=== PATIENT | male | born 1945 | race Caucasian/White ===

== ENCOUNTER 2018-03-11 03:08 | Inpatient (IN) | payer MEDICARE, OTHER ==
[~2018-03-11] VITALS: Ht 177.8 cm; Wt 98.4 kg
[~2018-03-11 03:08] MED LIST: ALLOPURINOL 10100 M1 PO; ASPIR 8181 MG PO; ASPIRIN EC81 M1 PO; CARDIZEM CD120 MG PO; CLARITIN-D 121 EACH PO; CLOPIDOGREL75 MG PO; CO Q-1010 MG PO; COUMADIN 5 MG TA5 M1 PO; DHEA25 MG PO; HYDROCODON-ACE1 EAC7 PO; HYDROCODON-ACE1 EAC8 PO; LISINOPRIL20 MG PO; LISINOPRIL5 MG PO; MUPIROCIN22 GM TP; OXYCODONE HCL5 M1 PO
[2018-03-11 03:16] VITALS: BP 162/100
[2018-03-11] MEDS ORDERED: COZAAR100 MG PO (03:18)
[2018-03-11 03:38] LABS: ABSOLUTE BASOPHILS 0.1 thou/uL (0.0-0.2); ABSOLUTE EOSINOPHILS 0.2 thou/uL (0.0-0.7); ABSOLUTE LYMPHOCYTES 1.3 thou/uL (0.8-5.3); ABSOLUTE MONOCYTES 1.1 thou/uL (0.0-1.2); ABSOLUTE NEUTROPHILS 10.1 thou/uL (1.6-8.1); BASOPHILS 0.8 %; EOSINOPHILS 1.5 %; HEMATOCRIT 49.1 % (42.0-52.0); HEMOGLOBIN 16.9 gm/dL (14.0-18.0); MCH 31.5 pg (26.0-34.0); MCHC 34.4 g/dL (28.0-37.0); MCV 91.7 fL (80.0-100.0); MONOCYTES 8.4 %; NUCLEATED RBCS 0 /100WBC; PLATELET COUNT* 247 thou/uL (150-400); POLYS 79.3 %; RBC 5.36 mil/uL (4.50-6.00); RDW-CV 13.2 % (10.5-14.5); WBC 12.7 thou/uL (4.0-11.0)
[2018-03-11 03:40] LABS: URINE CLARITY TURBID; URINE COLOR RED
[2018-03-11 03:48] LABS: CALCIUM 9.4 mg/dL (8.5-10.1); CREATININE 1.2 mg/dL (0.6-1.3); POTASSIUM 4.1 mmol/L (3.5-5.1)
[2018-03-11 03:50] LABS: INR 2.1; PROTIME 21.3 Seconds (9.20-11.50)
[2018-03-11 03:50] LABS: URINE PROTEIN ND (Negative); URINE SPECIFIC GRAVITY ND (1.005-1.030)
[2018-03-11 03:51] LABS: ACETEST (KETONE CONFIRMATORY) Negative (Negative); ICTOTEST (BILI CONFIRMATORY) Negative (Negative); URINE BILIRUBIN ND (Negative); URINE BLOOD ND (Negative); URINE GLUCOSE-RANDOM ND (Negative); URINE KETONES ND (Negative); URINE LEUKOCYTES-REFLEX ND (Negative); URINE NITRITE-REFLEX ND (Negative); URINE REDUCING SUBSTANCE NEGATIVE (Negative); URINE UROBILINOGEN ND E.U./dl (0.2-1.0)
[2018-03-11 03:53] LABS: CASTS None Seen /LPF (None Seen); MUCUS 0-3 Light strn/LPF (None Seen); SQUAMOUS 0-3 Few /LPF (0-3); URINE RBC >20 Many /HPF (0-2); URINE WBC-REFLEX 6-15 Few /HPF (0-5)
[2018-03-11 03:54] LABS: CRYSTALS None Seen /LPF (None Seen)
[2018-03-11 05:00] VITALS: BP 131/66
[2018-03-11 05:55] VITALS: BP 130/72
--- NOTE | 2018-03-11 06:00 | NUR ---
PT RECEIVED FROM ED. SAT MAINTAINED IN RA BUT PT STATED SOB, CONNECTED TO 2L O2. ALERT AND ORIENTED X 4. CALL LIGHT WITHIN REACH AND BED IN LOW POSITION. PT HR RUNNING ON 50'S. DENIES CHEST PAIN AND SOB. HEMATURIA PRESENT. C/O DIFFICULTY WHILE VOIDING. AFIB TRACING ON THE MONITOR.
--- NOTE | 2018-03-11 09:56 | EKG ---
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: PABLO : 1945 Requested By: Belén Boss Order Number: [id number] MD: Sam Sosa Measurements Intervals [place] Rate: 108 P: [place]: QRS: 67 QRSD: 94 T: 243 QT: 347 QTc: 465 Interpretive Statements Atrial flutter/fibrillation Borderline repol abnormality, diffuse leads Baseline wander in lead(s) V4,V5,V6 Compared to ECG 11/22/2015 12:05:48 rate increased Electronically Signed On 03-11-2018 9:55:53 ABSTRACT CLERK by Sam Sosa [email or web address] <ELECTRONICALLY SIGNED> By: Sam Sosa MD, FAC 03/11/18 0955 [id number] Sam Sosa MD, [facility] /EPI
--- NOTE | 2018-03-11 11:52 | NUR ---
CM ASSESSMENT: PT LIVES AT HOME INDEPENDENTLY. DOES NOT REQUIRE ASSISTANCE WITH ADLS. PT DRIVES AND PERFORMS HIS OWN ERRANDS. CM TO FOLLOW IF NEEDED
[2018-03-11 11:58] VITALS: BP 118/66
--- NOTE | 2018-03-11 11:58 | NUR ---
VSS, ASSUMED CARE OF PT THIS AM, ASSESSMENT PERFORMED AND CHARTED, FALL PRECAUTIONS IN PLACE AND CALL LIGHT IN RECAH, PT IS A&O4, PT IS UP AD BEAU, ON RA AND HAS DYSURIA, PT GOAL IS TO SIT UP IN CHAIR AND GET CLEANED UP, WILL FOLLOW WITH PLAN OF CARE AND HOURLY.
[2018-03-11 12:31] LABS: HEMATOCRIT 45.6 % (42.0-52.0); HEMOGLOBIN 15.5 gm/dL (14.0-18.0)
[2018-03-11 15:15] VITALS: BP 141/78
--- NOTE | 2018-03-11 15:29 | NUR ---
VSS, PT VOIDED AROUND 1400, POST VOID VOLUME WAS 103 ML
--- NOTE | 2018-03-11 18:17 | NUR ---
VSS, PT PROGRESSING TOWARDS GOAL, PT URIN HAS NO BLOOD AND HE HAS COMPLETED ALL TESTS, HOURLY ROUNDS COMPLETED AND NO OTHER STATUS CHANGE NOTED,
[2018-03-11 20:20] VITALS: BP 135/86
[2018-03-12] VITALS: BP 146/85
[2018-03-12 04:00] VITALS: BP 113/59
--- NOTE | 2018-03-12 05:12 | NUR ---
PT CARE ASSUMED AT 1930. SAT MAINTAINED IN RA. CALL LIGHT WITHIN REACH AND BED IN LOW POSITION. DENIES PAIN AND SOB. ALERT AND ORIENTED X4. HOURLY ROUNDING DONE FOR PT SAFETY.
[2018-03-12 05:32] LABS: HEMATOCRIT 43.2 % (42.0-52.0); HEMOGLOBIN 14.7 gm/dL (14.0-18.0); MCH 31.4 pg (26.0-34.0); MCHC 33.9 g/dL (28.0-37.0); MCV 92.5 fL (80.0-100.0); MPV 7.4 fl. (7.2-11.1); RBC 4.67 mil/uL (4.50-6.00); RDW-CV 13.4 % (10.5-14.5); WBC 7.9 thou/uL (4.0-11.0)
[2018-03-12 05:45] LABS: INR 1.6; PROTIME 16.7 Seconds (9.20-11.50)
[2018-03-12 05:46] LABS: CALCIUM 8.6 mg/dL (8.5-10.1); CREATININE 1.2 mg/dL (0.6-1.3); POTASSIUM 3.7 mmol/L (3.5-5.1)
[2018-03-12 08:05] VITALS: BP 118/69
--- NOTE | 2018-03-12 09:23 | NUR ---
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
[2018-03-12 09:33] VITALS: BP 118/69
[2018-03-12] MEDS ORDERED: LEVSIN0.125 MG PO (10:42)
[2018-03-12] MEDS ORDERED: CEFUROXIME250 MG PO (10:42)
--- NOTE | 2018-03-12 11:14 | NUR ---
ORDERS RECIEVIED FOR OKAY TO D/C TO HOME THIS SHIFT PER WITH FOLLOW UP OP WITH UROLOGY FOR CYSTOSCOPY- IV TO LEFT HAND D/C'D ALONG WITH ELEVATOR STARTER PRIOR TO D/C- D/C TEACHING/EDUCATION/FOLLOW UPS GIVEN TO PT AND PRIOR TO D/C WITH ALL QUESTIONS AND CONCERNS ADDRESSED PRIOR TO D/C- WRITEN EDUCATION ALONG WITH SCRIPTS PROVIDED TO PT AT TIME OF D/C- BELONGINGS PACKED AND ACCOUNTED FOR PER PT AND - PT ESCORTED PER TECH VIA W/C WITH BELONGINGS; AT SIDE TO VEHICLE AT 1116- NO PROBLEMS TO NOTE AT TIME OF D/C
--- NOTE | 2018-03-16 13:09 | PATH ---
[address] [address] PATHOLOGY RPT PROCEDURE Name: FAHEEM SCHNEIDER Room: [address]#: [id number] Admission: 03/11/18 Date of : 43 Discharge: 03/12/18 Report #: [id number] Path Case #: [id number] Note [facility] Accession Number: [id number] TESTS RESULT FLAG UNITS REF RANGE LAB Clinician Provided Cytology Information No. of containers..01 Urine Bottle Source: URINE VOIDED Clinician ICD10: 01 N39.0 DIAGNOSIS: 02 URINE VOIDED INCONCLUSIVE. FEW ATYPICAL UROTHELIAL CELLS IN BACKGROUND OF REACTIVE UROTHELIAL CELLS AND HEAVY ACUTE INFLAMMATION. Pathologist ICD10: 02 R82.8 Signed out by: Ethan Manrique MD, Pathologist NPI- [id number] Performed by: Michelle Decker, Copy Supervisor ([facility]) Gross description: 01 80 ML, DARK RED, CLOUDY /LCS FLAG LEGEND: L-Low Normal,H-High Normal,LL-Alert Low,HH-Alert High <-Panic Low,>-Panic High,A-Abnormal,AA-Critical Abnormal Performed at: [address] [place] [address] Oliver Burton MD, [address] [place] [address] [address] [facility], [place] [address] Ethan Manrique MD, Specimen Comment: A courtesy copy of this report has been sent to [employer]imen Comment: [phone]. Specimen Comment: Report sent to Specimen Comment: A duplicate report has been generated due to demographic updates. Performed at: [address], [place], [place] [address] MD Oliver Burton MD Phone: [phone]
== END 2018-03-12 11:16 | disposition home or self-care (01) | DRG 690 ==
LOC: M.ERS 03:08 → M.TBA-ER 04:04 → M.2W 04:04
PROVIDERS: Emergency Medicine; Internal Medicine; ADMIT Internal Medicine
DX: N30.91 Cystitis, unspecified with hematuria (principal); R65.10 Systemic inflammatory response syndrome (SIRS) of non-infectious origin without acute organ dysfunction; I10 Essential (primary) hypertension; I48.2 Chronic atrial fibrillation; K08.409 Partial loss of teeth, unspecified cause, unspecified class; M10.9 Gout, unspecified; I35.0 Nonrheumatic aortic (valve) stenosis; N28.1 Cyst of kidney, acquired; R31.0 Gross hematuria; B96.89 Other specified bacterial agents as the cause of diseases classified elsewhere; D35.00 Benign neoplasm of unspecified adrenal gland; Z90.49 Acquired absence of other specified parts of digestive tract; Z95.2 Presence of prosthetic heart valve; Z88.1 Allergy status to other antibiotic agents; Z88.8 Allergy status to other drugs, medicaments and biological substances; Z91.011 Allergy to milk products; Z87.891 Personal history of nicotine dependence